=== PATIENT | male | born 1955 | race Caucasian/White ===

== ENCOUNTER 2016-04-28 09:16 | Day surgery (SDC) | payer OTHER ==
[~2016-04-28] VITALS: Ht 177.8 cm; Wt 113.2 kg
[~2016-04-28 09:16] MED LIST: ASPIR 8181 M1 PO; CENTRUM SILVER1 EAC3 PO; FISH OIL 1,0001 EAC7 PO; GLIPIZIDE-METF1 EAC2 PO; LEVEMIR FL100 UNIT/1 SC; LIPITOR80 MG PO; NORCO 5/3251 TABLET PO; NOVOLOG PE100 UNITS/ SC; TRICOR145 MG PO
[2016-04-28] MEDS ORDERED: LEVEMIR FL100 UNIT/1 SC ×2 (09:29→09:30)
[2016-04-28] MEDS ORDERED: CIPROFLOXACIN500 M1 PO (09:31)
[2016-04-28 10:24] VITALS: BP 156/103
[2016-04-28 10:50] LABS: POINT-OF-CARE METER ID UU14174212
[2016-04-28 12:14] LABS: POINT-OF-CARE USER ID 515036437
[2016-04-28 12:35] VITALS: BP 136/79
[2016-04-28 13:35] VITALS: BP 136/78
[2016-04-28 15:30] VITALS: BP 155/94
[2016-04-28 16:53] VITALS: BP 148/88
== END 2016-04-28 16:57 | disposition home or self-care (01) ==
LOC: SDC 09:16
PROVIDERS: Urology
DX: R31.0 Gross hematuria (principal); N20.1 Calculus of ureter; N40.0 Benign prostatic hyperplasia without lower urinary tract symptoms; E78.5 Hyperlipidemia, unspecified; Z80.42 Family history of malignant neoplasm of prostate; E11.9 Type 2 diabetes mellitus without complications; Z82.49 Family history of ischemic heart disease and other diseases of the circulatory system; Z83.3 Family history of diabetes mellitus; Z79.4 Long term (current) use of insulin; Z79.82 Long term (current) use of aspirin
CPT/HCPCS: 74420; 80048; 82948; C1758; C1876; J0744

== ENCOUNTER → 2016-05-17 | Outpatient (CLI) | payer OTHER ==
[~2016-05-17] MED LIST changes: +CIPROFLOXACIN500 M1 PO
== END | disposition home or self-care (01) ==
LOC: CDC 15:07
DX: R94.31 Abnormal electrocardiogram [ECG] [EKG] (principal); R00.0 Tachycardia, unspecified; I25.2 Old myocardial infarction
CPT/HCPCS: 93000

== ENCOUNTER → 2016-05-29 | Outpatient (CLI) | payer OTHER ==
[~2016-05-29] VITALS: Ht 177.8 cm; Wt 112.4 kg
[2016-05-29 10:15] LABS: ANION GAP 8 MEQ/L (2-14); CHLORIDE 105 MEQ/L (99-109); SAMPLE HEMOLYSIS CHECK 0; SAMPLE ICTERIC CHECK 0; SAMPLE LIPEMIA CHECK 0; SODIUM 138 MEQ/L (136-147)
[2016-05-29 10:16] LABS: POINT-OF-CARE METER ID UU13113694
[2016-05-29 10:21] LABS: GFR ESTIMATE (CALCULATED) > 59 mL/min/; GLUCOSE 150 mg/dL (70-99); UREA NITROGEN (BUN) 17 mg/dL (9-23)
[2016-05-29 11:04] LABS: POINT-OF-CARE METER ID UU13113819
== END | disposition home or self-care (01) ==
LOC: AMB 08:21
PROVIDERS: Urology
PROC: 0TF4XZZ Fragmentation in Left Kidney Pelvis, External Approach (ICD-10-PCS; principal; 2016-05-29)
DX: N20.1 Calculus of ureter (principal); E11.9 Type 2 diabetes mellitus without complications; E78.5 Hyperlipidemia, unspecified; I10 Essential (primary) hypertension; Z82.49 Family history of ischemic heart disease and other diseases of the circulatory system; Z83.3 Family history of diabetes mellitus; Z80.42 Family history of malignant neoplasm of prostate; Z79.4 Long term (current) use of insulin
CPT/HCPCS: 74000; 80048; 82948; J2250; J3010

== ENCOUNTER 2016-06-08 10:21 | Day surgery (SDC) | payer OTHER ==
[~2016-06-08] VITALS: Ht 177.8 cm; Wt 112.4 kg
[~2016-06-08 10:21] MED LIST changes: +BACTRIM,SEPT1 TABLET PO
[2016-06-08 11:05] VITALS: BP 133/84
[2016-06-08 11:07] LABS: POINT-OF-CARE METER ID UU14174212
[2016-06-08 13:39] LABS: POINT-OF-CARE METER ID UU13113675; POINT-OF-CARE USER ID 515036437
[2016-06-08 13:50] VITALS: BP 137/80
[2016-06-08 14:35] VITALS: BP 162/82
== END 2016-06-08 14:43 | disposition home or self-care (01) ==
LOC: SDC 10:21
PROVIDERS: Urology
PROC: 0TF78ZZ Fragmentation in Left Ureter, Via Natural or Artificial Opening Endoscopic (ICD-10-PCS; principal; 2016-06-08)
DX: N20.1 Calculus of ureter (principal); E11.9 Type 2 diabetes mellitus without complications; I10 Essential (primary) hypertension; E78.5 Hyperlipidemia, unspecified; N40.0 Benign prostatic hyperplasia without lower urinary tract symptoms
CPT/HCPCS: 74000; 82365 90; 82948; C1876; J0330; J0690; J1580; J2405; J3010; J7120

== ENCOUNTER → 2016-09-19 | Outpatient (CLI) | payer OTHER | END | disposition home or self-care (01) | LOC: NUC 10:35 | DX: N13.30 Unspecified hydronephrosis (principal); Z87.442 Personal history of urinary calculi | CPT/HCPCS: 78709; A9562 ==